=== PATIENT | female | born 1990 | race Caucasian/White ===

== ENCOUNTER 2016-12-06 18:37 | Inpatient (IN) | payer BC ==
[2016-12-06] MEDS ORDERED: LACTATED RINGERS 1,000 ML IV PRN (19:13)
[2016-12-06] MEDS ORDERED: OXYTOCIN IN LR 500 ML IV ONE ×2 (19:13→19:34)
[2016-12-06] MEDS ORDERED: OXYTOCIN 10 UNITS/ML VIAL ONE (19:33)
[2016-12-06] MEDS ORDERED: LIDOCAINE Viscous 2% 15 ML UDCUP ONE (19:33)
[2016-12-06] MEDS ORDERED: LIDOCAINE 1% (PRES FREE) 30 ML VIAL ONE (19:33)
[2016-12-06] MEDS ORDERED: MINERAL OIL 25 ML BOT ONE (19:33)
[2016-12-06] MEDS ORDERED: PUMP TUBING ONE ×2 (19:34→20:32)
[2016-12-06] MEDS ORDERED: IV START KIT ONE (19:34)
[2016-12-06] MEDS ORDERED: LACTATED RINGERS 1,000 ML ONE (19:34)
[2016-12-06 20:09] LABS: HEMATOCRIT 38.1 % (37.0-47.0); HEMOGLOBIN 12.5 gm/l (12.0-16.0); MEAN CELL VOLUME 83.9 fl (81.0-99.0); MEAN CORPUSCULAR HEMOGLOBIN 27.5 pg (27.0-31.0); MEAN CORPUSCULAR HGB CONC 32.8 g/dl (33.0-37.0); RED CELL DISTRIBUTION WIDTH 12.4 % (11.5-14.5)
[2016-12-06] MEDS: OXYTOCIN IN LR 500 ML IV PRN ×2 (20:43→21:10)
[2016-12-06 21:10] VITALS: BMI 23.3
[2016-12-06] MEDS ORDERED: FENTANYL/ROPIVACAINE EPIDURAL 250 ML EP ONE (21:30)
[2016-12-06] MEDS ORDERED: EPIDURAL PUMP SET ONE (21:30)
[2016-12-06] MEDS: LACTATED RINGERS 1,000 ML IV SCH (22:00)
[2016-12-06] MEDS ORDERED: EPHEDRINE SULFATE 50 MG/ML 1ML VIAL IV PRN (22:10)
[2016-12-06] MEDS ORDERED: FENTANYL/ROPIVACAINE EPIDURAL 250 ML EP SCH (22:10)
[2016-12-06] MEDS ORDERED: NALBUPHINE HCL 20 MG/ML AMP IV PRN (22:10)
[2016-12-06] MEDS ORDERED: ONDANSETRON 4 MG/2ML 2 ML VIAL IV PRN (22:10)
[2016-12-06] MEDS ORDERED: LACTATED RINGERS 500 ML IV PRN (22:10)
[2016-12-06] MEDS ORDERED: SODIUM CHLORIDE 0.9% 500 ML IV PRN (22:10)
[2016-12-06] MEDS ORDERED: METOCLOPRAMIDE HCL 5 MG/ML 2ML VIAL IV PRN (22:10)
[2016-12-06] MEDS ORDERED: NALOXONE HCL 0.4 MG/ML VIAL IV PRN (22:10)
[2016-12-06] MEDS ORDERED: DIPHENHYDRAMINE HCL 50 MG/1 ML VIAL IV PRN (22:10)
[2016-12-06] MEDS ORDERED: EPIDURAL PROCEDURE TRAY ONE (22:16)
[2016-12-06] MEDS ORDERED: ROPIVACAINE 0.5% 30 ML VIAL ONE (22:16)
--- NOTE | 2016-12-07 00:16 | PCMAN ---
OB Admission Note - History : 2 Term: 1 : 0 Abortions (S&E): 0 Livin Gestational Age (weeks): 40 Days (#/7): 1 Admit Cervical Dilation:: 4.5 Admit Cervical Effacement (%):: 80 Admit Station:: -2 Admit Presentaton:: vertex Membrane Status: Ruptured Rupture (Date): 12/07/16 Rupture (Time): 11:00 Membranes Comment:: clear Labor Onset (Date): 12/06/16 Labor Onset (Time): 21:37 Contractions: Yes Contraction Frequency:: 5-5 Heart Rate:: 135 Status:: category 1 EFW:: 7 Summary of Course:: Dates by LMP, uncomplicated, GBS neg. - Labs Blood Type: AB (+) positive Hct/Hgb:: 38.1/12.5 Rubella Status: Immune GBS Status: Negative Abnormal Labs: None Other Labs:: 1 hr GTT 94 - Physical Exam General: Afebrile, Mild Distress Psych/Mental Status: Mood/Affect Appropriate Neurological: Grossly Intact, Alert, Oriented x 4, Normal Gait, Normal Speech, Normal Reflexes, Cranial Nerves 3-12 Intact HEENT: Atraumatic, PERRLA, EOMI, Mucous membr. moist/pink Lungs: Clear to Auscultation Bilaterally Cardiovascular: Regular Rate and Rhythm, No Murmur Abdomen: Normal Bowel Sounds Genitourinary: Normal Female Genitalia, Indwelling Urinary Cath Rectal Exam: Deferred Extremities: Full ROM, No Edema Skin: Normal Color, No Rash - Problems (1) Post term over 40 weeks Status: Acute Code: O48.0 Assessment/Plan: expected. Epidural in place on my arrival and completely dilated. (2) Anemia affecting Status: Acute Code: O99.019 Assessment/Plan: Improved with Iron supplementation
--- NOTE | 2016-12-07 00:24 | PCMDEL ---
Delivery Note - Labor 1st stage (hr/min):: 91 min 2nd stage (hr/min):: 25 min 3rd stage (hr/min):: 4 min Total (hr/min):: 120 min Pushed (hr/min):: 10 min - Delivery Delivery (Date): 12/07/16 Delivery (Time): 23:33 Infant Gender: Female Position: OA Umbilical Cord: 3 Vessel Delayed Cord Clamping:: 2-3 min 1 Minute Total: 7 5 Minute Total: 9 Placenta:: intact EBL:: 100 ml Perineum:: intact with 1st degree left vaginal laceration Suture:: 2-0 Chromic Anesthesia/Meds:: Epidural Length ROM:: 12 hr/33 min Comments:: Beautiful, uncomplicated delivery.
[2016-12-07] MEDS ORDERED: ACETAMINOPHEN 325 MG TABLET PO PRN (00:42)
[2016-12-07] MEDS ORDERED: OXYCODONE/ACETAMINOPHEN 5/325 MG TABLET PO PRN (00:42)
[2016-12-07] MEDS ORDERED: DOCUSATE SODIUM 100 MG CAPSULE PO PRN (00:42)
[2016-12-07] MEDS ORDERED: BENZOCAINE/MENTHOL 60 APPLIC/BOT TP PRN (00:42)
[2016-12-07] MEDS ORDERED: IBUPROFEN 800 MG TABLET PO PRN (00:42)
[2016-12-07] MEDS ORDERED: OXYCODONE HCL 5 MG TABLET PO PRN (00:42)
[2016-12-07] MEDS ORDERED: LANOLIN 50 APPLIC/7G TUBE TP PRN (00:42)
[2016-12-07] MEDS ORDERED: CALCIUM CARBONATE 500 MG TAB.CHEW PO PRN (00:42)
[2016-12-07] MEDS ORDERED: PRENATAL VIT/FE FUMARATE/FA 1 TABLET PO SCH (09:00)
--- NOTE | 2016-12-07 12:28 | PDOC44 ---
- Subjective Day: 1 Reports Flatus, Reports Pain Tolerable, Reports , Reports Lochia Light, Reports Tolerating Regular Diet - Objective Temp Pulse Resp BP Pulse Ox 97.9 F 86 16 129/82 12/07/16 08:21 12/07/16 08:21 12/07/16 08:21 12/07/16 08:21 Lab Results 12/06/16 19:50 WBC 9.2 RBC 4.54 Hgb 12.5 Hct 38.1 Plt Count 341 12/06/16 19:50 MCHC 32.8 L Current Medications Generic Name Dose Route Start Last Admin Trade Name Freq PRN Reason Stop Dose Admin Acetaminophen 325 mg 12/07/16 00:42 Tylenol PO Q4H PRN Pain (Mild) Benzocaine/Menthol 1 applic 12/07/16 00:42 Dermoplast TP PRN PRN Patient Comfort Calcium Carbonate/Glycine 500 mg 12/07/16 00:42 Tums PO BID PRN Indigestion Docusate Sodium 100 mg 12/07/16 00:42 Colace PO DAILY PRN Comfort Emollient Ointment 1 applic 12/07/16 00:42 [id number]-[id number] TP PRN PRN sore nipples Ibuprofen 800 mg 12/07/16 00:42 Motrin PO Q6H PRN Pain (Mild) Multivi/Iron Carb/Fe Sulf/FA/Prenat 1 tab 12/07/16 09:00 Plus PO DAILY JONA Oxycodone HCl 5 - 10 mg 12/07/16 00:42 Roxicodone PO Q3H PRN Pain (Severe) Oxycodone/Acetaminophen 1 - 2 tab 12/07/16 00:42 Percocet 5/325 PO Q4H PRN Pain (Moderate) Sodium Chloride 10 ml 12/07/16 00:42 Normal Saline 10ml Flush IV PRN PRN IV Flush Sodium Chloride 10 ml 12/07/16 09:00 Normal Saline 10ml Flush IV Q8HR [facility] - Physical Exam General: Afebrile, No Acute Distress Psych/Mental Status: Mood/Affect Appropriate, Bonding Well Neurological: Grossly Intact, Alert, Oriented x 4, Normal Speech HEENT: Atraumatic, PERRLA, EOMI, Mucous membr. moist/pink Lungs: Clear to Auscultation Bilaterally Cardiovascular: Regular Rate and Rhythm, No Murmur Breast: Soft, Skin intact, Nipples Intact, No Nipples Cracked Fundus: Firm, Midline, Below Umbilicus Abdomen: Normal Bowel Sounds Genitourinary: Normal Female Genitalia, Edema (mild) Extremities: Full ROM, No Edema, No Tenderness Skin: Normal Color, Warm, Dry, Intact, No Rash Wound INFORMATION SYSTEMS SECURITY ANALYST: Dressing Clean/Dry/Intact, Well Approximated - Problems:Assessment/Plan (1) Anemia affecting Status: Acute Assessment/Plan: Improved with Iron supplementation (2) (normal spontaneous vaginal delivery) Status: Acute Assessment/Plan: stable, continue routine PP care. Disposition: Stable, Anticipate DC Home Tomorrow
[2016-12-07] MEDS: LACTATED RINGERS 1,000 ML IV SCH (14:38)
[2016-12-08 06:59] LABS: HEMATOCRIT 34.7 % (37.0-47.0); HEMOGLOBIN 10.9 gm/l (12.0-16.0)
[2016-12-08 07:21] VITALS: BP 122/78
--- NOTE | 2016-12-08 08:34 | PDOC39B ---
Hospital Course: ADMIT DATE: 12/06/16 DISCHARGE DATE: 12/08/16 ADMISSION DIAGNOSES: Post term PROCEDURES: Spontaneous Vaginal Delivery HISTORY OF PRESENT ILLNESS: 26 year old G2 T1 L1 at 40 weeks 1 days presenting with spontaneous labor, had an uncomplicated vaginal delivery with a 1st degree left vaginal laceration. HOSPITAL COURSE: The patient had an uncomplicated post course. By day of discharge the patient is ambulating, eating, voiding, and passing flatus without difficulty. Pain is controlled and lochia is appropriate. She is [] - Physical Exam Vital Signs: Temp Pulse Resp BP Pulse Ox 98.1 F 78 16 122/78 12/08/16 07:20 12/08/16 07:20 12/08/16 07:20 12/08/16 07:20 General: Afebrile, No Acute Distress Psych/Mental Status: Mood/Affect Appropriate Neurological: Alert, Oriented x 4 HEENT: Atraumatic, PERRLA, EOMI, Mucous membr. moist/pink Lungs: Clear to Auscultation Bilaterally Cardiovascular: Regular Rate and Rhythm, No Murmur Breast: Soft, Nipples Intact Fundus: Firm, Midline, Below Umbilicus Abdomen: Normal Bowel Sounds Genitourinary: Normal Female Genitalia, No Edema Lochia: Light Extremities: Full ROM, No Edema Skin: Normal Color, Warm, Dry, Intact, No Rash Wound: Dressing Clean/Dry/Intact, Well Approximated - Discharge Diagnosis (1) Anemia affecting Status: Inactive Assessment/Plan: Improved with Iron supplementation prenatally, will not require extra Iron following discharge. (2) (normal spontaneous vaginal delivery) Status: Acute Assessment/Plan: stable, discharge home, FU 6 weeks. - Discharge Plan Condition: Good Disposition: Home Instruction Forms: Vaginal Discharge Instructions Prescriptions: Cholecalciferol (Vitamin D3) [Vitamin D3] 5,000 units PO DAILY #100 capsule
== END 2016-12-08 09:42 | disposition home or self-care (01) | DRG 775 ==
LOC: FBCOUT 18:37 → FBC 18:37 → FBCOUT 19:20 → FBC 19:20
PROVIDERS: ADMIT Family Medicine; ATTEND Family Medicine
PROC: 10E0XZZ Delivery of Products of Conception, External Approach (ICD-10-PCS; principal; 2016-12-07)
PROC: 0HQ9XZZ Repair Perineum Skin, External Approach (ICD-10-PCS; 2016-12-07)
DX: O48.0 Post-term pregnancy (principal); O70.0 First degree perineal laceration during delivery; Z3A.40 40 weeks gestation of pregnancy; Z37.0 Single live birth; O99.02 Anemia complicating childbirth; D64.9 Anemia, unspecified